=== PATIENT | female | born 1960 | race Caucasian/White ===

== ENCOUNTER 2021-02-08 17:42 | Emergency (ER) | payer BC, SELFPAY ==
[2021-02-08 18:04] VITALS: BP 114/64; PULSE 81; RESP 16; TEMP 37.9; O2SAT 99
--- NOTE | 2021-02-08 18:57 | ED.URI ---
HPI - URI/Sore Throat General Chief Complaint: Upper Respiratory Infection Stated Complaint: sinus infection ears and cough Time Seen by Provider: 02/08/21 18:57 Source: patient History of Present Illness HPI Narrative: Patient presents with a 5-day history of nasal congestion cough and laryngitis. Patient states she was exposed at [place] by family member who recently tested positive for COVID-19. Patient denies any shortness of breath no high fevers and no chest pain. Related Data Home Medications Medication Instructions Recorded Confirmed estradiol See Rx Instructions .ROUTE .COMPLEX 02/08/21 02/08/21 valacyclovir 500 mg PO DAILY 02/08/21 02/08/21 Allergies Allergy/AdvReac Type Severity Reaction Status Date / Time erythromycin base Allergy Unknown NAUSEA/VOMI Verified 02/08/21 18:52 TING Review of Systems Review of Systems: CONSTITUTIONAL: Denies chills, or sweats. Reports fever and generalized body aches EYES: Denies visual changes, redness, or discharge. ENT: Denies otalgia. Reports nasal congestion runny nose and sore throat CARDIOVASCULAR: Denies chest pain, palpitations, or edema. RESPIRATORY: Denies dyspnea. Reports occasional cough GASTROINTESTINAL: Denies abdominal pain, nausea, vomiting, or diarrhea. GENITOURINARY: Denies dysuria or hematuria. SKIN: Denies rash or itching. MUSCULOSKELETAL: Denies back pain, joint pain, or myalgia. Reports generalized body aches NEUROLOGIC: Denies headache, numbness, or weakness. PSYCHIATRIC: Denies anxiety or depression. [facility] Comments At time of signature, agree with nursing past medical, surgical, social and family history. There is no relevant family history pertinent to the presenting complaint Exam Narrative: CONSTITUTIONAL: Denies chills, or sweats. Reports fever and generalized body aches EYES: Denies visual changes, redness, or discharge. ENT: Denies otalgia. Reports nasal congestion runny nose and sore throat CARDIOVASCULAR: Denies chest pain, palpitations, or edema. RESPIRATORY: Denies dyspnea. Reports occasional cough GASTROINTESTINAL: Denies abdominal pain, nausea, vomiting, or diarrhea. GENITOURINARY: Denies dysuria or hematuria. SKIN: Denies rash or itching. MUSCULOSKELETAL: Denies back pain, joint pain, or myalgia. Reports generalized body aches NEUROLOGIC: Denies headache, numbness, or weakness. PSYCHIATRIC: Denies anxiety or depression. Course Course Level of Care: Express Care Visit Vital Signs Vital signs: Vital Signs Temperature 37.9 C H 02/08/21 18:04 Pulse Rate 81 02/08/21 18:04 Respiratory Rate 16 02/08/21 18:04 Blood Pressure 114/64 02/08/21 18:04 Pulse Oximetry 99 02/08/21 18:04 Temperature 37.9 C H 02/08/21 18:04 Pulse Rate 81 02/08/21 18:04 Respiratory Rate 16 02/08/21 18:04 Blood Pressure 114/64 02/08/21 18:04 Pulse Oximetry 99 02/08/21 18:04 Critical dx considered and discussed with pt. Educated patient on red flag s/s and to go to ED if s/s occur. Discussed with pt when to return to Express Care or primary care provider. Pt gave verbal undertstanding, all questions were answered, and pt was agreeable to plan MDM - URI/Sore Throat Differential Diagnosis Differential diagnosis: Likely upper respiratory infection, croup, otitis media, sinusitis, viral infection, bronchitis, influenza and pharyngitis Lab Data Labs: Influenza A Screen Negative Reference Range: Negative Influenza B Screen Negative Reference Range: Negative Critical Care Time Critical Care Time Critical Care Time: No Discharge Plan Discharge Clinical Impression: Upper respiratory infection, Viral infection Patient Disposition: Home, Self-Care Condition: Stable Instructions: Antibiotic Form, Upper Respiratory Infection (DC) Additional Instructions: The following recommendat
== END 2021-02-08 19:16 | disposition home or self-care (01) ==
PROVIDERS: Emergency Provider Nurse Practitioner Family; PCP Internal Medicine
DX: J06.9 Acute upper respiratory infection, unspecified (principal); B34.9 Viral infection, unspecified; Z20.822 Contact with and (suspected) exposure to COVID-19
CPT/HCPCS: 87804; 99203; G0463

== ENCOUNTER 2024-05-02 10:06 | Outpatient (NON) | payer MEDICARE, SELFPAY ==
--- OUTSIDE RECORDS SUMMARY | 2024-05-03 10:58 | XMS_ITS | Encounter Summary ---
Author Organization [facility] Healthcare Address [address] [place] [id number] Care Team Providers Care Biztalk Consultant Name Role Phone Justin Daily MD Primary Care Provider Reason for Visit * Reason Onset Date Comments Scheduling Appointments 06/24/2020 Confirmi ng mammogram appt Encounter Details Date Type Department Care Team (Late st Contact Info) Description 06/24/2020 Telephone [facility] [address] [place] [id number] Mary Anne Nunez RT Scheduling Appointments (Confirming mammogram appt) Social History Tobacco Use Types Packs/Day Years Used Date Smoking Tobacco: Never Smokeless Tobacco: Never Alcohol Use Standard Drinks/Week Comments Yes 0 (1 standard drink = 0.6 oz pur e alcohol) Moderate PHQ-2 Answer Date Recorded PHQ-2 Total Score (If total score is 3 or more points, staff should administer the PHQ-9) 0 06/04/2020 Comments No Sex and Gender Information Value Date Recorded Sex Assigned at Not on file 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
--- OUTSIDE RECORDS SUMMARY | 2024-05-03 10:59 | XMS_ITS | Clinical Summary ---
Author Organization [facility] Address [address] [place] [address] Phone Care Team Providers Care Edge Grinder Machine Name Role Phone Justin Daily MD Primary Care Provider [phone] Allergies Active Allergy Reactions Criticality Noted Date Comments Erythromycin Nausea and Vomiting Low 01/23/2018 Medications CALCIUM CARB/VIT D3/MINERALS (CALCIUM CARBONATE-VIT D3-MIN ORAL) take 1 tablet by Oral route every day 05/16/2013 Active valACYclovir (VALTREX) 500 mg tablet Take 500 mg by mouth. 12/01/2016 Active estradioL 0.075 mg/24 hr patch LIZETTE 1 PA EXT TO THE SKIN 2 TIMES A WK 8 Patch 11 06/16/2021 Active Active Problems No known active problems Immunizations Immunization Administration Dates Next Due (TDVAX)(7 YRS UP) TETANUS AN D DIPHTHERIA TOXOIDS, ADSORBED (2 LF OF TETANUS TOXOID AND 2 LF OF DIPHTHERIA TOXOID), 0.5ML (PF), IM 02/14/2005 INFLUENZA VACCINE QUADRIVALE NT 6 MOS UP PF IM 03/05/2018 Influenza Seasonal Unspecifi ed Formulation IM 11/06/2018,11/07/2011,02/16/2010 Influenza Vaccine Tri Split 4+ Im 2013,01/08/2013,12/08/2011,2011,02/16/2010 Family History Medical History Relation Name Comments Cancer Mother uterine, cervic al Relation Name Status Comments Mother Social History Tobacco Use Types Packs/Day Years Used Date Smoking Tobacco: Never Smokeless Tobacco: Never Alcohol Use Standard Drinks/Week Comments Yes 0 (1 standard drink = 0.6 oz pur e alcohol) monthly Comments No Sex and Gender Information Value Date Recorded Sex Assigned at Not on file 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 Gender Identity Not on file Sexual Orientation Not on file 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 Not on file Not on file Not on file Last Filed Vital Signs Vital Sign Reading Time Taken Comments Blood Pressure 114/64 06/16/2021 10:21 AM CDT Pulse - - Temperature - - Respiratory Rate - - Oxygen Saturation - - Inhaled Oxygen Concentration - - Weight 69.9 kg (154 lb) 06/16/2021 10:21 AM CDT Height 170.2 cm (5' 7 ) 06/16/2021 10:21 AM CDT Body Mass Index 24.12 06/16/2021 10:21 AM CDT Plan of Treatment Upcoming Encounters Date Type Department Care Team (Late st Contact Info) Description 07/16/2024 8:45 AM CDT Office Visit [facility] Minim[facility] Invasive Gynecology [address] [place] [address] Deonte Mcnamara MD [address] [place] [address] Health Maintenance Due Date Last Done Comments FIT-DNA Q 3 years 12/22/2003 FIT/FOBT Q 1 year 12/22/2003 Flex Sig/CT Colonography Q 5 years 12/22/2003 DTAP/TDAP/TD VACCINES (1 - Tdap) 02/15/2005 02/14/19 06 PNEUMOCOCCAL VACCINE 50+ YEA RS (1 of 1 - PCV) 2008 BREAST CANCER SCREENING 06/28/2022 06/29/19 22, 01/18/2018, 01/07/2016 (Previously completed), Additional history exists ZOSTER VACCINE (2 of 2) 08/03/2022 06/08/2022 INFLUENZA VACCINE (#1) 2023 2, 12/04/2020, 10/24/2019, Additional history exists OSTEOPOROSIS SCREENING 12/22/2023 Preventative Visit- Commercial 02/07/2024 0 06/08/2022, 06/16/2021, 06/07/2021, Additional history exists COLORECTAL SCREENING 03/09/2027 03/09/2017, 11/08/2010 (Previously completed) Colorectal Cancer Screening 03/09/2027 RSV VACCINE (60+ or ) (1 - 1-dose 75+ series) 2033 Procedures Procedure Name Priority Date/Time Associated Diagnosis Comments MAMMO SCREENING BILAT Routine 06/28/2021 from Last 3 Months or Most Recently Relevant to Health Maintenance Results * MAMMO SCREENING BILAT (06/28/2021) Anatomical Region Laterality Modality Breast Bilateral Mammography us Deonte Mcnamara MD MAMMO ORDERABLES Edited Result - Final from Last 3 Months or Most Recently Relevant to Health Maintenance Insurance BLUE ACCESS CHOICE Care Teams Edge Grinder Machine Relationship Specialty Start Date End Date Justin Daily MD [address] [place] [phone] PCP - General Internal Medicine 12/04/18
--- OUTSIDE RECORDS SUMMARY | 2024-05-03 10:59 | XMS_ITS | Referral Summary ---
Author Organization [facility] Address [address] [place] [id number] Care Team Providers Care Outboard Motor Mechanic Name Role Phone Justin Daily MD Primary Care Provider Encounters Date Type Department Care Team Description 03/01/2024 1:00 PM CLINICAL SAFETY SPECIALIST Procedure visit [facility] Primary Care at [address] [place] [address] Justin Daily MD Non-recurrent acute serous otitis media of right ear (Primary Dx); BMI 25.0-25.9,adult; Palpitations; Primary sleep disturbance from Last 3 Months Allergies Active Allergy Reactions Criticality Noted Date Comments Erythromycin Nausea & Vomiting Low 01/23/2018 Medications calcium carbonate-vit D3-min (CALTRATE 600+D PLUS MINERALS) 600 mg calcium- 400 unit tablet take 1 tablet by Oral route every day 0 0 4 Active valACYclovir (VALTREX) 500 mg tablet Take 1 tablet (500 mg total) by mouth daily 90 tablet 3 1 Active Additional Information Patient taking differently:500 mg oralDaily PRN, Reported on 03/01/2024 tretinoin (RETIN-A) 0.05 % cream 3 Active fluticasone propionate (FLONASE) 50 mcg/actuation nasal sprayIndications :Allergic rhinitis, unspecified seasonality, unspecified trigger Administer 2 sprays into each nostril daily 16 g 2 4 Active busPIRone (BUSPAR) 10 mg tabletIndication s:Generalized Anxiety Disorder Take 1 tablet (10 mg total) by mouth 3 (three) times a day 90 tablet 11 4 06/16/19 25 Active scopolamine 1 mg over 3 days patch [address] 1 patch on the skin every third day as needed (nausea) 4 patch 2 4 Active zolpidem (AMBIEN) 5 mg tabletIndication s:Sleep-Onset Insomnia Take 1 tablet (5 mg total) by mouth nightly as needed for sleep This replaces trazedone 30 tablet 5 5 03/01/19 26 Active buPROPion XL (WELLBUTRIN XL) 150 mg 24 hr tablet TAKE 1 TABLET(150 MG) BY MOUTH EVERY MORNING 90 tablet 1 5 Active Active Problems Problem Noted Date Diagnosed Date Carpal tunnel syndrome, right 12/09/2022 Anxiety and depression 10/27/2022 Assessment & Plan (10/27/2022 8:21 AM CDT): Not at goal at this time Will start wellbutrin 150 mg xr Sensorineural hearing loss ( SNHL) of right ear with unrestricted hearing of left ear 06/29/2022 Assessment & Plan (06/29/2022 11:40 AM CDT): Hearing test [facility] Impacted cerumen of right ear 06/29/2022 Assessment & Plan (06/29/2022 11:41 AM CDT): Hearing test [facility] Tinnitus 06/29/2022 Assessment & Plan (06/29/2022 11:41 AM CDT): Hearing test [facility] History of low-risk melanoma 03/19/2019 Primary sleep disturbance 11/07/2017 Assessment & Plan (10/27/2022 8:35 AM CDT): Not at goal at thsi time D/c ambien Can try melatonin with an antihistamine Can also try trazodone prn - likely anxiety component Health care maintenance 12/01/2016 Medication management 12/01/2016 History of laparoscopic-assisted vaginal hystere ctomy 12/01/2016 Vitamin D deficiency 02/23/2012 Overview (05/12/2016): VITAMIN D DEFICIENCY NOS Resolved Problems Problem Noted Date Diagnosed Date Resolved Date Acute bilateral low back pain 07/10/2018 08/17/2018 Pectoralis muscle strain 07/10/2018 Malignant melanoma of right pinna 12/01/2016 03/16/2018 Assessment & Plan (12/01/2016 10:37 AM CDT): 2010 Neck pain 11/05/2014 09/07/2017 Overview (05/12/2016): Cervicalgia Immunizations Immunization Administration Dates Next Due Influenza, Quadrivalent, Spl it, Preservative Free, Intramuscular 10/27/2022,2021,12/04/2020,10/23,03/05/2018 Influenza, Split 02/16/2010 Influenza, Trivalent, IM (MDV) 9,12/05/2013,01/08/2013,12/07,11/07/2011,02/16/2010 Influenza, Trivalent, Preser vative Free, Intramuscular 10/31/2023 Influenza, Unspecified 12/08/2019 Pfizer SARS-CoV-2 Monovalent Vaccination (12+ Yrs) PURPLE 05/15/2020,04/23/2020 Td, adsorbed 02/14/2005 ZOSTER Recombinant 10/27/2022,06/08/2022 Social History Tobacco Use Types Packs/Day Years Used Date Smoking Tobacco: Never Smokeless Tobacco: Never Tobacco Cessation:Counseling Given: Not Answered Alcohol Use Standard Drinks/Week Comments Yes 0 (1 standard drink = 0.6 oz pur e alcohol) Moderate AUDIT-C Answer Date Recorded Q1: How often do you have a drink containing alc ohol? Monthly or less 03/01/2024 Q2: How many drinks containi ng alcohol do you have on a typical day when you are drinking? 1 or 2 03/01/2024 Q3: How often do you have si x or more drinks on one occasion? Never 03/01/2024 PHQ-2 Answer Date Recorded PHQ-2 Total Score (If total score is 3 or more points, staff should administer the PHQ-9) 0 03/01/2024 Comments No Sex and Gender Information Value Date Recorded Sex Assigned at Not on file Legal Sex Female 8:30 AM CLINICAL SAFETY SPECIALIST Gender Identity Female 05/09/2022 8:59 PM CDT Sexual Orientation Straight 05/09/2022 8: 59 PM CDT Last Filed Vital Signs Vital Sign Reading Time Taken Comments Blood Pressure 112/74 03/01/2024 1:03 PM CLINICAL SAFETY SPECIALIST Pulse 67 03/01/2024 1:03 PM CLINICAL SAFETY SPECIALIST Temperature 36.4 C (97.6 F) 03/01/2024 1:03 PM CLINICAL SAFETY SPECIALIST Respiratory Rate 16 03/01/2024 1:03 PM CLINICAL SAFETY SPECIALIST Oxygen Saturation 98% 03/01/2024 1:03 PM CLINICAL SAFETY SPECIALIST Inhaled Oxygen Concentration - - Weight 68.9 kg (152 lb) 03/01/2024 1:03 PM CLINICAL SAFETY SPECIALIST Height 165.1 cm (5' 5 ) 03/01/2024 1:03 PM CLINICAL SAFETY SPECIALIST Body Mass Index 25.29 03/01/2024 1:03 PM CLINICAL SAFETY SPECIALIST Plan of Treatment Not on file Procedures Procedure Name Priority Date/Time Associated Diagnosis Comments SCREENING MAMMOGRAM BILATERAL W WAYLON Schedule Routine, Read Routine (OP Routine) 12/28/2023 9:05 AM CLINICAL SAFETY SPECIALIST Screening mammogram, encounter for DEXA AXIAL SKELETON BONE DENSITY 1 OR MORE SITES Schedule Routine, Read Routine (OP Routine) 11/09/2022 2:20 PM CDT Postmenopausal STOOL DNA COLOGUARD Routine 06/14/2021 11:20 AM CDT Screen for colon cancer Screening for rectal cancer HEPATITIS C AB REFLEX RNA QUANT PCR Routine 10/18/2016 4:12 PM CDT from Last 3 Months or Most Recently Relevant to Health Maintenance Results * Screening Mammogram Bilateral W Waylon (12/28/2023 9:05 AM CLINICAL SAFETY SPECIALIST) Anatomical Region Laterality Modality Breast Bilateral Mammography 12/28/2023 9:48 AM CLINICAL SAFETY SPECIALIST Impressions 12/28/2023 9:48 AM CLINICAL SAFETY SPECIALIST There is no mammographic evidence to suggest malignancy. The patient may continue screening mammography as per ACR guidelines. FINAL ASSESSMENT: BI-RADS Category 1: Negative. Electronically signed by: Hellen Givens M.D. Narrative 12/28/2023 9:48 AM CLINICAL SAFETY SPECIALIST EXAMINATION: BILATERAL SCREENING MAMMOGRAM WITH TOMOGRAPHY HISTORY: Screening. COMPARISON(S): 10/27/2022 and 06/25/2020 TECHNIQUE: Full-field 2D images and digital tomosynthesis images were obtained. CAD was utilized. BREAST PARENCHYMAL COMPOSITION: The breasts are heterogenously dense, which may obscure small masses. FINDINGS: There are no suspicious masses. No suspicious calcifications are seen. There is no unexplained architectural distortion. There is no skin thickening seen. There are no mammographically abnormal lymph nodes seen in the axillae or elsewhere. us Self Screening Mammogram IMG MAMMO PROCEDURES Fi nal Result * Dexa Axial Skeleton Bone Density 1 or 2 Site (11/09/2022 2:20 PM CDT) Anatomical Region Laterality Modality Body N/A Other 11/09/2022 6:35 PM CDT Narrative 11/09/2022 6:36 PM CDT EXAM DESCRIPTION: DEXA AXIAL SKELETON BONE DENSITY 1 OR MORE SITES REASON FOR STUDY: 61 y/o year old F with given history of: osteoporosis screening Screening. Postmenopausal Bridge Club Manager/Model: scenios SL (S/N [id number]) CLINICAL INFORMATION: Current height: 66.5 inches Maximum height: 67 inches Weight: 151 pounds Risk factors: Postmenopausal COMPARISON: None available FINDINGS: AP LUMBAR SPINE L1-L4: Total BMD is 1.112 g/cm2 T-score is 0.6 LEFT HIP: Total BMD is 0.760 g/cm2 T-score is -1.5 Femoral neck BMD is 0.693 g/cm2 T-score is -1.4 FRAX: 10 year risk for a major osteoporotic fracture is 8.3 %, 10 year risk for a hip fracture is 0.8 % IMPRESSION: Low Bone Mass. REFERENCE: Bone mineral density: Normal (T-score above or = -1.0) Low bone mass (T-score between -1.0 and -2.5) replaces the previously used term osteopenia Osteoporosis (T-score = or below -2.5) Medical evaluation for secondary causes of low bone mineral density may be appropriate. FRAX is a World Health Organization validated fracture risk assessment tool that calculates a person's 10 year probability of a major osteoporosis related fracture and hip fracture. According to the National Osteoporosis Foundation guidelines, postmenopausal women and men age 50 or older with low bone mass and a 10 year probability of a major osteoporosis related fracture = or greater than 20% or a 10 year probability of a hip fracture = or greater than 3% should be considered for treatment. For further information, including treatment recommendations, please refer to the 2019 ISCD Official Positions (http://www.iscd.org) and the NOF's Clinician's Guide to Prevention and Treatment of Osteoporosis (http://www.nof.org/professionals/clinical-guidelines) THIS IS AN ELECTRONICALLY VERIFIED FINAL REPORT 11/09/2022 6:36 PM - Electronically signed by Otilio Saab M.D. MF: [email or web address] Report ID: [id number] Reading Location: [place] [address] Procedure Note Otilio Saab MD - 11/09/2022 EXAM DESCRIPTION: DEXA AXIAL SKELETON BONE DENSITY 1 OR MORE SITES REASON FOR STUDY: 61 y/o year old F with given history of:osteoporosis screening Screening. Postmenopausal Bridge Club Manager/Model: scenios SL (S/N [id number]) CLINICAL INFORMATION: Current height: 66.5 inches Maximum height: 67 inches Weight: 151 pounds Risk factors: Postmenopausal COMPARISON: None available FINDINGS: AP LUMBAR SPINE L1-L4: Total BMD is 1.112 g/cm2 T-score is 0.6 LEFT HIP: Total BMD is 0.760 g/cm2 T-score is -1.5 Femoral neck BMD is 0.693 g/cm2 T-score is -1.4 FRAX: 10 year risk for a major osteoporotic fracture is 8.3 %, 10 year risk fora hip fracture is 0.8 % IMPRESSION: Low Bone Mass. REFERENCE: Bone mineral density: Normal (T-score above or = -1.0) Low bone mass (T-score between -1.0 and -2.5) replaces thepreviously used term osteopenia Osteoporosis (T-score = or below -2.5) Medical evaluation for secondary causes of low bone mineral density may be appropriate. FRAX is a World Health Organization validated fracture risk assessmenttool that calculates a person's 10 year probability of a major osteoporosisrelated fracture and hip fracture. According to the National OsteoporosisFoundation guidelines, postmenopausal women and men age 50 or older with low bonemass and a 10 year probability of a major osteoporosis related fracture = or greater than 20% or a 10 year probability of a hip fracture = or greaterthan 3% should be considered for treatment. For further information, including treatment recommendations, please referto the 2019 ISCD Official Positions (http://www.iscd.org) and the NOF's Clinician's Guide to Prevention and Treatment of Osteoporosis (http://www.nof.org/professionals/clinical-guidelines) THIS IS AN ELECTRONICALLY VERIFIED FINAL REPORT 11/09/2022 6:36 PM - Electronically signed by Otilio Saab M.D. MF: [email or web address] Report ID: [id number] Reading Location: [place] [address] Dayo Mckay MD [facility] DXA PROCEDURES Final Result * Stool DNA - Cologuard (06/14/2021 11:20 AM CDT) Pathologist [facility] Stool DNA - Cologuard Negative Negative [facility] (CLIA #:[id number]) Comment: NEGATIVE TEST RESULT. A negative Cologuard result indicates a low likelihood that a colorectal cancer (CRC) or advanced adenoma (adenomatous polyps with more advanced pre-malignant features) is present. The chance that a person with a negative Cologuard test has a colorectal cancer is less than 1 in 1500 (negative predictive value >99.9%) or has an advanced adenoma is less than 5.3% (negative predictive value 94.7%). These data are based on a prospective cross-sectional study of 10,000 individuals at average risk for colorectal cancer who were screened with both Cologuard and colonoscopy. (Lindsay Lopez al, N Engl J Med 2014;370(14):9391-7836) The normal value (reference range) for this assay is negative. COLOGUARD RE-SCREENING RECOMMENDATION: Periodic colorectal cancer screening is an important part of preventive healthcare for asymptomatic individuals at average risk for colorectal cancer. Following a negative Cologuard result, the [place] Cancer Society and U.S. Multi-Society Task Force screening guidelines recommend a Cologuard re-screening interval of 3 years. References: [place] Cancer Society Guideline for Colorectal Cancer Screening: https://www.cancer.org/cancer/ykxrz-plobuw-izraih/qkncrdzsz-fixpuqzie-qcmjgpy/ac s-rec ommendations.html.; Madi DK, Ortiz SANDOVAL, Terrance LeijaK, Colorectal Cancer Screening: Recommendations for Physicians and Patients from the U.S. Multi-Society Task Force on Colorectal Cancer Screening , Am J Gastroenterology 2017; 112:5472-8566. TEST DESCRIPTION: Composite algorithmic analysis of stool DNA-biomarkers with hemoglobin immunoassay. Quantitative values of individual biomarkers are not reportable and are not associated with individual biomarker result reference ranges. Cologuard is intended for colorectal cancer screening of adults of either sex, 45 years or older, who are at average-risk for colorectal cancer (CRC). Cologuard has been approved for use by the U.S. FDA. The performance of Cologuard was established in a cross sectional study of average-risk adults aged 50-84. Cologuard performance in patients ages 45 to 49 years was estimated by sub-group analysis of near-age groups. Colonoscopies performed for a positive result may find as the most clinically significant lesion: colorectal cancer [4.0%], advanced adenoma (including sessile serrated polyps greater than or equal to 1cm diameter) [20%] or non- advanced adenoma [31%]; or no colorectal neoplasia [45%]. These estimates are derived from a prospective cross-sectional screening study of 10,000 individuals at average risk for colorectal cancer who were screened with both Cologuard and colonoscopy. (Lindsay Lopez al, N Engl J Med 2014;370(14):0495-2580.) Cologuard may produce a false negative or false positive result (no colorectal cancer or precancerous polyp present at colonoscopy follow up). A negative Cologuard test result does not guarantee the absence of CRC or advanced adenoma (pre-cancer). The current Cologuard screening interval is every 3 years. ([place] Cancer Society and U.S. Multi-Society Task Force). Cologuard performance data in a 10,000 patient pivotal study using colonoscopy as the reference method can be accessed at the following location: www.[employer]/results. Additional description of the Cologuard test process, warnings and precautions can be found at www.cologZaaskrd.com. Stool 06/14/2021 11:2 0 AM CDT 06/15/2021 3:38 PM CDT us Justin Daily MD LAB BODY FLUIDS AND STO OLS ORDERABLES Final Result [employer] (CLIA #:[id number]) [address] [place] [address] * Hepatitis C Antibody Reflex Hepatitis C RNA Quantitative PCR (10/18/2016 4:12 PM CDT) Hep C Ab Negative Negative [facility] Blood specimen (specimen) 10/18/2016 4:12 PM CDT 10/18/2016 4:16 PM CDT Aniceto Davis MD LAB MICROBIOLOGY - GENER AL ORDERABLES Final Result [facility] [address] [place] [address] from Last 3 Months or Most Recently Relevant to Health Maintenance Insurance [address] [facility] [place] <no value> ANTHEM ACCESS CHOICE MEDICARE [facility] MEDICARE SUPPLEMENT ANTHEM ACCESS CHOICE Member Subscriber Plan / Payer ( fective 2010-Present) Name:Aline Reis Relation to Subscriber:Self Name:Aline Reis Payer ID:[id number] (NAIC) Type: [employer] Address: [facility] [address] [address] MEDICARE SUPPLEMENT Member Subscriber Plan / Payer ( fective 2023-) Name:Aline Reis Relation to Subscriber:Self Name:Aline Reis Payer ID:[id number] Group ID:[id number] Type:COMMERCIAL Address: [address] [place] [id number] MEDICARE Care Teams Outboard Motor Mechanic Relationship Specialty Start Date End Date Justin Daily MD PCP - General Internal Medicine 07/20/17
--- OUTSIDE RECORDS SUMMARY | 2024-05-03 10:59 | XMS_ITS | Encounter Summary ---
Author Organization [facility] Address [address] [facility] [address] [place] [address] Care Team Providers Care Delivery Recruiter Name Role Phone Aniceto Davis MD Primary Care Provider + Aniceto Davis MD Primary Care Provider + Aniceto Davis MD Primary Care Provider + Aniceto Davis MD Primary Care Provider + Aniceto Davis MD Primary Care Provider + Justin Daily MD Primary Care Provider Encounter Details Date Type Department Care Team (Late st Contact Info) Description 11/04/2008 Orders Only [facility] Health Information Management [address] [place] [address] Justin Daily MD [address] [place] [address] [address] [place] [address] Social History Tobacco Use Types Packs/Day Years Used Date Smoking Tobacco: Never Assessed Comments Unknown Sex and Gender Information Value Date Recorded Sex Assigned at Not on file Legal Sex Female 8:30 AM PHERESIS SPECIALIST Gender Identity Female 05/09/2022 8:59 PM CDT Sexual Orientation Straight 05/09/2022 8: 59 PM CDT documented as of this encounter Plan of Treatment Not on file documented as of this encounter Procedures Procedure Name Priority Date/Time Associated Diagnosis Comments COLONOSCOPY Routine 11/04/2008 documented in this encounter Results * Colonoscopy (11/04/2008) Anatomical Region Laterality Modality Other us Historical Provider ENDOSCOPY PROCEDURES Nargis l Result documented in this encounter Visit Diagnoses Not on filedocumented in this encounter Care Teams Delivery Recruiter Relationship Specialty Start Date End Date Aniceto Davis MD [address] [place] [address] [place] [address] PCP - General 05/06/16 07/19/17 Aniceto Davis MD [address] [place] [address] [place] [address] PCP - General 05/31/12 05/05/16 Aniceto Davis MD [address] [place] [address] [place] [address] PCP - General 04/13/11 05/30/12 Aniceto Davis MD [address] [place] [address] [place] [address] PCP - General 02/16/10 04/12/11 Aniceto Davis MD [address] [place] [address] [place] [address] PCP - General 08/14/06 02/15/10 Justin Daily MD [address] [place] [address] [place] [address] PCP - General Internal Medicine 07/20/17 documented as of this encounter
--- OUTSIDE RECORDS SUMMARY | 2024-05-03 10:59 | XMS_ITS | Clinical Summary ---
Author Organization [facility] A Address [address] [place] [address] Care Team Providers Care Landscape Account Manager Name Role Phone Justin Daliy MD Primary Care Provider Allergies Active Allergy Reactions Criticality Noted Date [...] AM CDT): Hearing test [facility] Impacted cerumen of right ear 06/29/2022 Assessment & Plan (06/29/2022 11:41 AM CDT): Hearing test [facility] Tinnitus 06/29/2022 Assessment & Plan (06/29/2022 11:41 AM CDT): Hearing test [facility] History of low-risk melanoma [...] Neck pain 11/05/2014 09/07/2017 Overview (05/12/2016): Cervicalgia Encounters Date Type Department Care Team Description 03/01/2024 1:00 PM MELANGEUR OPERATOR Procedure visit [facility] Primary Care at [address] [place] [address] Justin Daily MD Non-recurrent acute serous otitis media of right ear (Primary Dx); BMI 25.0-25.9,adult; Palpitations; Primary sleep disturbance from Last 3 Months Immunizations Immunization Administration Dates Next Due Influenza, Quadrivalent, Spl it, Preservative Free, Intramuscular 10/27/2022,2021,12/04/2020,10/23,03/05/2018 Influenza, Split 02/16/2010 Influenza, Trivalent, IM (MDV) 9,12/05/2013,01/08/2013,12/07,11/07/2011,02/16/2010 Influenza, Trivalent, Preser vative Free, Intramuscular 10/31/2023 Influenza, Unspecified 12/08/2019 Pfizer SARS-CoV-2 Monovalent Vaccination (12+ Yrs) PURPLE 05/15/2020,04/23/2020 Td, adsorbed 02/14/2005 ZOSTER Recombinant 10/27/2022,06/08/2022 Surgical History Surgery Date Site/Laterality Comments HYSTERECTOMY 02/06/2013 - 02/05/2014 Medical History Medical History Date Comments Pancreatitis Pancreatitis Malignant neoplasm of skin Cance r, skin Hx 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 Hx Other Medical -DERMATOLOGIS T Hx Other Medical 10/2010 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; Laterality: right Hx Other Medical 2009 Hysterectomy le ft cinthya Fibrocystic breast Skin cancer 6 years ago Family History Medical History Relation Name Comments Alzheimer's disease Father Alzheime r's Disease; Uterine cancer Mother Cancer -uteri ne; Breast cancer Neg Hx Ovarian cancer Neg Hx Thyroid cancer Neg Hx Relation Name Status Comments Father Mother Social History Tobacco Use Types Packs/Day [...] on file Legal Sex Female 8:30 AM MELANGEUR OPERATOR Gender Identity Female 05/09/2022 8:59 PM CDT Sexual Orientation Straight 05/09/2022 8: 59 PM CDT Obstetrics History Para Term AB IAB SAB Ectopic Multiple Livin g Live Births 2 2 2 Date Outcome GA Total Labor Labor/2nd/3rd Weight Sex Type Anes PTL Brunilda A1 A5 Name Clin Term Term Last Filed Vital Signs Vital Sign Reading Time Taken Comments Blood Pressure 112/74 03/01/2024 1:03 PM MELANGEUR OPERATOR Pulse 67 03/01/2024 1:03 PM MELANGEUR OPERATOR Temperature 36.4 C (97.6 F) 03/01/2024 1:03 PM MELANGEUR OPERATOR Respiratory Rate 16 03/01/2024 1:03 PM MELANGEUR OPERATOR Oxygen Saturation 98% 03/01/2024 1:03 PM MELANGEUR OPERATOR Inhaled Oxygen Concentration - - Weight 68.9 kg (152 lb) 03/01/2024 1:03 PM MELANGEUR OPERATOR Height 165.1 cm (5' 5 ) 03/01/2024 1:03 PM MELANGEUR OPERATOR Body Mass Index 25.29 03/01/2024 1:03 PM MELANGEUR OPERATOR Plan of Treatment Health Maintenance Due Date Last Done Comments Hepatitis B Screening 1976 DTaP/Tdap/Td Vaccine (1 - Tdap) 02/15/2005 6 Pneumococcal vaccine 65+ (1 of 1 - PCV) 2008 Covid-19 Vaccine (2023-2 5 season) 2023 12/28/2020, 05/15/2020, 04/23/2020 Colon Cancer Screening-DNA Stool 06/14/2024 06/14/2021, 04/05/2018, 04/05/2018, Additional history exists Well Visit 65+ 06/15/2024 06/16/2023, 0504/2022, 06/07/2021, Additional history exists Osteoporosis Screening-Bone Density Scan 11/09/2024 11/09/2022, 06/23/2014, 06/23/2014, Additional history exists Breast Cancer Screening-Mammogram 12/27/2024 12/28/2023, 10/27/2022, 06/28/2021, Additional history exists Depression Screening 03/01/2025 03/01/2024, 10/27/2022, 06/08/2022, Additional history exists Fall Risk Assessment 03/01/2025 03/01/2024, 06/08/2022, 01/06/2022, Additional history exists Hepatitis C Screening Completed 10/18/2016, 017 Zoster Vaccine Completed 10/27/2022, 06/08/2022 Influenza Vaccine Completed 10/31/2023, , 2021, Additional history exists Procedures Procedure Name Priority Date/Time Associated Diagnosis Comments SCREENING MAMMOGRAM BILATERAL W WAYLON Schedule Routine, Read Routine (OP Routine) 12/28/2023 9:05 AM MELANGEUR OPERATOR Screening mammogram, encounter for DEXA AXIAL SKELETON [...] Mammogram Bilateral W Waylon (12/28/2023 9:05 AM MELANGEUR OPERATOR) Anatomical Region Laterality Modality Breast Bilateral Mammography 12/28/2023 9:48 AM MELANGEUR OPERATOR Impressions 12/28/2023 9:48 AM MELANGEUR OPERATOR There is no mammographic evidence to suggest malignancy. The patient may continue screening mammography as per ACR guidelines. FINAL ASSESSMENT: BI-RADS Category 1: Negative. Electronically signed by: Hellen Givens M.D. Narrative 12/28/2023 9:48 AM MELANGEUR OPERATOR EXAMINATION: BILATERAL SCREENING MAMMOGRAM WITH TOMOGRAPHY HISTORY: [...] given history of: osteoporosis screening Screening. 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 MF: BLAKE Report ID: [id number] Reading Location: [place] [address] Procedure Note Otilio Saab MD - 11/09/2022 EXAM DESCRIPTION: DEXA AXIAL SKELETON BONE DENSITY 1 OR MORE SITES REASON FOR STUDY: 61 y/o year old F with given history of:osteoporosis screening Screening. 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 MF: BLAKE Report ID: [id number] Reading Location: [place] [address] Dayo Mckay MD IM DXA PROCEDURES Final Result * Stool DNA - Cologuard (06/14/2021 11:20 AM CDT) Stool DNA - Cologuard Negative Negative T-ZONE (CLIA #:[id number]) Comment: NEGATIVE TEST RESULT. A negative Cologuard [...] screened with both Cologuard and colonoscopy. (Lindsay Suggs, N Engl J Med 2014;370(14):4686-1373) The normal value (reference range) for this assay is negative. COLOGUARD RE-SCREENING RECOMMENDATION: Periodic colorectal cancer screening is an important part of preventive healthcare for asymptomatic individuals at average risk for colorectal cancer. Following a negative Cologuard result, the [place] [employer] and U.S. Multi-Society Task Force screening guidelines recommend a Cologuard re-screening interval of 3 years. References: [place] [employer] Guideline for Colorectal Cancer Screening: https://www.cancer.org/cancer/zpoda-nxjggd-fnzywr/azqfjeykf-deepfuwus-othqqus/ac s-rec ommendations.html.; Madi DK, Ortiz CR, Terrance LeijaK, Colorectal Cancer Screening: Recommendations for Physicians and Patients from the U.S. Multi-Society Task Force on Colorectal Cancer Screening , Am J Gastroenterology 2017; 112:8782-3814. TEST DESCRIPTION: Composite algorithmic analysis of stool [...] screened with both Cologuard and colonoscopy. (Lindsay Suggs, N Engl J Med 2014;370(14):3370-0115.) Cologuard may produce a false negative or false positive result (no colorectal cancer or precancerous polyp present at colonoscopy follow up). A negative Cologuard test result does not guarantee the absence of CRC or advanced adenoma (pre-cancer). The current Cologuard screening interval is every 3 years. ([place] [employer] and U.S. Multi-Society Task Force). Cologuard performance data in a 10,000 patient pivotal study using colonoscopy as the reference method can be accessed at the following location: www.DeliveryChef.in.iFLYER/results. Additional description of the Cologuard test process, warnings and precautions can be found at www.cologuard.com. Stool 06/14/2021 11:2 0 AM CDT 06/15/2021 3:38 PM CDT Justin Daily MD LAB BODY FLUIDS AND STO OLS ORDERABLES Final Result Performing Organization Address City/[facility]/ZIP Co de Phone Number Doctor kinetic (CLIA #:[id number]) [place] [place] [address] * Hepatitis C Antibody Reflex Hepatitis C RNA Quantitative PCR (10/18/2016 4:12 PM CDT) Hep C Ab Negative Negative JUAREZ BRUCE Blood specimen (specimen) 10/18/2016 4:12 PM CDT 10/18/2016 4:16 PM CDT Aniceto Davis MD LAB MICROBIOLOGY - GENER AL ORDERABLES Final Result Performing Organization Address City/[facility] Co de Phone Number JUAREZ [address] Department [place] [address] from Last 3 Months or Most Recently Relevant to Health Maintenance Insurance CARMELO MADDOX <no value> ANTHEM ACCESS CHOICE MEDICARE [facility] MEDICARE SUPPLEMENT [facility] CHOICE [facility] Address: [address] MEDICARE SUPPLEMENT MEDICARE Care Teams Landscape Account Manager Relationship Specialty Start Date End Date Justin Daily MD PCP - General Internal Medicine 07/20/17
== END 2024-05-02 10:07 | disposition home or self-care (01) ==
PROVIDERS: PCP Internal Medicine; Visit Provider Plastic Surgery
DX: D23.9 Other benign neoplasm of skin, unspecified (principal)
CPT/HCPCS: 88305

== ENCOUNTER → 2025-01-06 13:30 | Outpatient (REF) | payer MEDICARE, SELFPAY ==
--- NOTE | 2025-01-06 13:30 | S_PTH ---
PATIENT: Aline Reis LOC: [facility] U#:[id number] AGE/SX: 64/F ROOM: RE01/06/[address]: Alivia Juarez MD : 1960 BED: DIS: SPEC #: [id number] RECD: 01/07/25 08:22 STATUS: NICOLA NEIL #: [id number] SERGEY: 01/06/25 13:[address]: Alivia Juarez DEPT: [facility] Surgical RECD BY: Og Ayala ENTERED: 01/07/25 08:22 SP TYPE: Surgical OTHR DR: UNKNOWN,DOCTOR Tissues: A - Cyst Procedures: Hematoxylin and Eosin Stain Gross and Microscopic Level 4
--- OUTSIDE RECORDS SUMMARY | 2025-01-06 14:38 | XMS_ITS | Clinical Summary ---
Author Organization [facility] Medical Office Building A Address [address] [place] [address] Care Team Providers Care Hammer Heater Name Role Phone Justin Daily MD Primary Care Provider Allergies Active Allergy Reactions Criticality Noted Date Comments Erythromycin Nausea & Vomiting Low 01/23/2018 Medications calcium carbonate-vit D3-min (CALTRATE 600+D PLUS MINERALS) 600 mg calcium- 400 unit tablet take 1 tablet by Oral route every day 0 0 4 Active fexofenadine-pse udoephedrine (CHIO-D) 60-120 mg per 12 hr tablet Take 1 tablet by mouth 2 (two) times a day For plugged up ears 14 tablet 1 5 10/02/19 26 Active escitalopram (LEXAPRO) 10 mg tabletIndication s:Generalized Anxiety Disorder Take 1 tablet (10 mg total) by mouth daily For excess worrying 90 tablet 3 5 Active Additional Information Patient not taking.Reported on 11/12/2024 zolpidem (AMBIEN) 5 mg tablet TAKE 1 TABLET(5 MG) BY MOUTH EVERY NIGHT NEEDED FOR SLEEP. REPLACES TRAZEDONE 30 tablet 5 5 Active valACYclovir (VALTREX) 500 mg tablet Take 1 tablet (500 mg total) by mouth daily 90 tablet 1 5 Active fluticasone propionate (FLONASE) 50 mcg/actuation nasal sprayIndications :Allergic rhinitis, unspecified seasonality, unspecified trigger Administer 2 sprays into each nostril daily 16 g 1 5 10/11/19 26 Active tretinoin (RETIN-A) 0.05 % cream Apply topically nightly 20 g 11 5 Active Active Problems Problem Noted Date Diagnosed Date Encounter for screening colonoscopy 06/19/2024 Carpal tunnel syndrome, right 12/09/2022 Anxiety and depression 10/27/2022 Assessment & Plan (10/27/2022 8:21 AM CDT): Not at goal at this time Will start wellbutrin 150 mg xr Sensorineural hearing loss ( SNHL) of right ear with unrestricted hearing of left ear 06/29/2022 Assessment & Plan (06/29/2022 11:40 AM CDT): Hearing test [facility] Impacted cerumen of right ear 06/29/2022 Assessment & Plan (06/29/2022 11:41 AM CDT): Hearing test [facility] Tinnitus 06/29/2022 Assessment & Plan (06/29/2022 11:41 AM CDT): Hearing test [facility] History of low-risk melanoma [...] Encounters Date Type Department Care Team Description 12/05/2024 Orders Only [facility] Care Organization [address] [place] [address] Justin Daily MD Screening for colorectal cancer 12/03/2024 Telephone [facility] Primary Care at [address] [place] [address] Justin Daily MD Prior Auth (Tretinoin) 11/12/2024 9:36 AM CDT - 11/12/2024 11:59 PM CDT Hospital Encounter [facility] [address] [place] [address] [address], [address] [place] [address] John Garcia MD Myalgia, other site (Primary Dx); Spondylosis of cervical region without myelopathy or radiculopathy Discharge Disposition: Discharge to home or self care 10/16/2024 Orders Only [facility] Primary Care at [address] [address] Justin Daily MD Abnormal MRI, lumbar spine (Primary Dx) 10/11/2024 8:13 AM CDT - 10/11/2024 11:59 PM CDT Hospital Encounter [facility] [address] [place] [address] Bilateral lumbar radiculopathy Discharge Disposition: Discharge to home or self care 10/11/2024 Results Follow-Up [facility] Primary Care at [address] [address] Justin Daily MD MRI Lumbar Spine WO Contrast from Last 3 Months Immunizations Immunization Administration Dates Next Due Influenza, Quadrivalent, Spl it, Preservative Free, Intramuscular 10/27/2022,2021,12/04/2020,10/23,03/05/2018 Influenza, Split 02/16/2010 Influenza, Trivalent, IM (MDV) 9,12/05/2013,01/08/2013,12/07,11/07/2011,02/16/2010 Influenza, Trivalent, Preser vative Free, Intramuscular 10/31/2023 Influenza, Unspecified 12/08/2019 Pfizer SARS-CoV-2 Monovalent Vaccination (12+ Yrs) PURPLE 05/15/2020,04/23/2020 Pneumococcal Conjugate Pcv20 06/19/2024 Td, adsorbed 02/14/2005 ZOSTER Recombinant 10/27/2022,06/08/2022 Surgical History Surgery Date Site/Laterality Comments HYSTERECTOMY 02/06/2013 - 02/05/2014 Medical History Medical History Date Comments Pancreatitis Pancreatitis Malignant neoplasm of skin Cance r, skin Hx 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 Hx Other Medical -DERMATOLOGIS T Hx Other Medical 10/2010 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; Laterality: right Hx Other Medical 2009 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 Fibrocystic breast Skin cancer 6 years ago [...] points, staff should administer the PHQ-9) 0 11/12/2024 PHQ-9 Answer Date Recorded PHQ-9 Total Score 1 11/12/2024 Comments No Sex and Gender Information Value Date Recorded Sex Assigned at Not on file Legal Sex Female 8:30 AM CLINICAL PSYCHOLOGY TEACHER Gender Identity Female 05/09/2022 8:59 PM CDT Sexual Orientation Straight 05/09/2022 8: 59 PM CDT Obstetrics History Para Term AB IAB SAB Ectopic Multiple Livin g Live Births 2 2 2 Date Outcome GA Total Labor Labor/2nd/3rd Weight Sex Type Anes PTL Brunilda A1 A5 Name Clin Term Term Last Filed Vital Signs Vital Sign Reading Time Taken Comments Blood Pressure 138/80 11/12/2024 9:58 AM CDT Pulse 71 11/12/2024 9:58 AM CDT Temperature 36.8 C (98.2 F) 10/01/2024 8:53 AM CDT Respiratory Rate 18 11/12/2024 9:58 AM CDT Oxygen Saturation 98% 11/12/2024 9:58 AM CDT Inhaled Oxygen Concentration - - Weight 69.9 kg (154 lb) 10/01/2024 8:53 AM CDT Height 165.1 cm (5' 5) 10/01/2024 8:53 AM CDT Body Mass Index 25.63 10/01/2024 8:53 AM CDT Plan of Treatment Upcoming Encounters Date Type Department Care Team (Late st Contact Info) Description 02/03/2025 9:30 AM CLINICAL PSYCHOLOGY TEACHER Hospital Encounter [address] [address] Jeromy Lopez DO [address] [address] 02/03/2025 9:30 AM CLINICAL PSYCHOLOGY TEACHER - 02/03/2025 10:00 AM CLINICAL PSYCHOLOGY TEACHER Surgery [address] [address] Jeromy Lopez DO [address] [place] [address] COLONOSCOPY Scheduled Procedures Name Priority Associated Diagnoses Date/Ti me COLONOSCOPY Encounter for screening colonoscopy 02/03/2025 9:30 AM CLINICAL PSYCHOLOGY TEACHER Health Maintenance Due Date Last Done Comments Hepatitis B Screening 1978 Colon Cancer Screening-DNA Stool 06/14/2024 06/14/2021, 04/05/2018, 04/05/2018, Additional history exists Covid-19 Vaccine ( season) 2024 12/28/2020, 05/15/2020, 04/23/2020 Influenza Vaccine (#1) 2024 , 10/27/2022, 2021, Additional history exists Osteoporosis Screening-Bone Density Scan 11/09/2024 11/09/2022, 06/23/2014, 06/23/2014, Additional history exists Breast Cancer Screening-Mammogram 12/27/2024 12/28/2023, 10/27/2022, 06/28/2021, Additional history exists Well Visit 65+ 06/19/2025 06/19/2024, 06/06, 06/08/2022, Additional history exists Fall Risk Assessment 10/01/2025 10/01/2024, 06/19/2024, 03/01/2024, Additional history exists Depression Screening 11/12/2025 11/12/2024, 11/12/2024, 10/01/2024, Additional history exists DTaP/Tdap/Td Vaccine (1 - Tdap) 09/14/2027 02/14/2005 Postponed from 02/15/2005 (Insurance / Financial) Hepatitis C Screening Completed 10/18/2016, 017 Zoster Vaccine Completed 10/27/2022, 06/08/2022 Pneumococcal vaccine 65+ Completed 06/19/2024 Procedures Procedure Name Priority Date/Time Associated Diagnosis Comments MRI LUMBAR SPINE WO CONTRAST Schedule Routine, Read Routine (OP Routine) 10/11/2024 8:56 AM CDT Bilateral lumbar radiculopathy SCREENING MAMMOGRAM BILATERAL W WAYLON Schedule Routine, Read Routine (OP Routine) 12/28/2023 9:05 AM CLINICAL PSYCHOLOGY TEACHER Screening mammogram, encounter for DEXA AXIAL SKELETON [...] Recently Relevant to Health Maintenance Results * MRI Lumbar Spine WO Contrast (10/11/2024 8:56 AM CDT) Anatomical Region Laterality Modality Spine N/A Magnetic Resonan ce 10/11/2024 9:17 AM CDT Narrative 10/11/2024 9:24 AM CDT EXAM DESCRIPTION: MRI LUMBAR SPINE WO CONTRAST REASON FOR STUDY: Bilateral lumbar radiculopathy Low back pain with bilateral lower extremity numbness for a couple of months. No injury TECHNIQUE: Sagittal and Axial imaging includes T1, T2, STIR sequences. COMPARISON: Lumbar spine radiographs dated 08/24/2018. FINDINGS: SEGMENTATION: 5 [id number]-ojirijs lumbar type vertebral bodies. ALIGNMENT: There is levoconvex lumbar curvature. VERTEBRAE: No acute compression fracture in the lumbar spine. Few scattered Schmorl's node. Multilevel endplate degenerative changes and marginal spur formation. The L3-L4 and L4-L5 facet joint STIR hyperintense signal can be seen with synovitis in the proper clinical scenario. Nonspecific mild heterogeneous T1 bone marrow signal. DISC HEIGHT: Multilevel disc desiccation and height loss. HARDWARE: None in the spine. CORD/CAUDA: The conus medullaris terminates at L1-L2. In the posterior epidural space at the level of L2 vertebral body is a 0.9 x 0.7 cm T1 dark, STIR hyperintense signal (series 6, image 9 and series 7, image 9). LOWER THORACIC: Incompletely imaged. No high-grade spinal canal stenosis. INDIVIDUAL DISC LEVELS: L1-L2: No significant disc bulge, spinal canal or neural foraminal narrowing. L2-L3: Minor disc bulge with thickened ligamentum flavum and facet arthropathy. No significant spinal canal or neural foraminal narrowing. L3-L4: No significant disc bulge, spinal canal or neural foraminal narrowing. Bilateral facet arthropathy. L4-L5: Disc bulge with thickened ligamentum flavum and facet arthropathy. Flattening of the ventral thecal sac. No significant neural foraminal narrowing. L5-S1: No significant disc bulge, spinal canal or neural foraminal narrowing. IMPRESSION: 1. Eerw-pn-dbzqfklc lumbar disc degeneration with thickened ligamentum flavum and more advanced facet arthropathy as described. The lumbar spinal canal is patent and there is no high-grade neural foraminal narrowing. 2. The L2 vertebral body level posterior epidural STIR hyperintense signal is nonspecific and could be a synovial cyst or ligamentum flavum cyst. Recommend a complete pre and postcontrast MRI utilizing fat saturated sequences to exclude an epidural space-occupying lesion. THIS IS AN ELECTRONICALLY VERIFIED FINAL REPORT 10/11/2024 9:24 AM - Electronically signed by Zaheer Walden D.O. AP: AP Report ID: [id number] Reading Location: [id number] Procedure Note Zaheer Walden, DO - 10/11/2024 EXAM DESCRIPTION: MRI LUMBAR SPINE WO CONTRAST REASON FOR STUDY: Bilateral lumbar radiculopathy Low back pain with bilateral lower extremity numbness for a couple ofmonths. No injury TECHNIQUE: Sagittal and Axial imaging includes T1, T2, STIR sequences. COMPARISON: Lumbar spine radiographs dated 08/24/2018. FINDINGS: SEGMENTATION: 5 kzu-qwk-zkxxxnq lumbar type vertebral bodies. ALIGNMENT: There is levoconvex lumbar curvature. VERTEBRAE: No acute compression fracture in the lumbar spine. Fewscattered Schmorl's node. Multilevel endplate degenerative changes and marginalspur formation. The L3-L4 and L4-L5 facet joint STIR hyperintense signal canbe seen with synovitis in the proper clinical scenario. Nonspecific mild heterogeneous T1 bone marrow signal. DISC HEIGHT: Multilevel disc desiccation and height loss. HARDWARE: None in the spine. CORD/CAUDA: The conus medullaris terminates at L1-L2. In the posterior epidural space at the level of L2 vertebral body is a 0.9 x 0.7 cm T1dark, STIR hyperintense signal (series 6, image 9 and series 7, image 9). LOWER THORACIC: Incompletely imaged. No high-grade spinal canalstenosis. INDIVIDUAL DISC LEVELS: L1-L2: No significant disc bulge, spinal canal or neural foraminalnarrowing. L2-L3: Minor disc bulge with thickened ligamentum flavum and facet arthropathy. No significant spinal canal or neural foraminal narrowing. L3-L4: No significant disc bulge, spinal canal or neural foraminalnarrowing. Bilateral facet arthropathy. L4-L5: Disc bulge with thickened ligamentum flavum and facet arthropathy. Flattening of the ventral thecal sac. No significant neural foraminal narrowing. L5-S1: No significant disc bulge, spinal canal or neural foraminalnarrowing. IMPRESSION: 1. Lxbx-vi-skgehuws lumbar disc degeneration with thickened ligamentum flavum and more advanced facet arthropathy as described. The lumbarspinal canal is patent and there is no high-grade neural foraminal narrowing. 2. The L2 vertebral body level posterior epidural STIR hyperintensesignal is nonspecific and could be a synovial cyst or ligamentum flavum cyst. Recommend a complete pre and postcontrast MRI utilizing fat saturated sequences to exclude an epidural space-occupying lesion. THIS IS AN ELECTRONICALLY VERIFIED FINAL REPORT 10/11/2024 9:24 AM - Electronically signed by Zaheer Walden D.O. AP: AP Report ID: [id number] Reading Location: [place] [address] Justin Daily MD IMG MRI PROCEDURES Nargis l Result * Screening Mammogram Bilateral W Waylon (12/28/2023 9:05 AM CLINICAL PSYCHOLOGY TEACHER) Anatomical Region Laterality Modality Breast Bilateral Mammography 12/28/2023 9:48 AM CLINICAL PSYCHOLOGY TEACHER Impressions 12/28/2023 9:48 AM CLINICAL PSYCHOLOGY TEACHER There is no mammographic evidence to suggest malignancy. The patient may continue screening mammography as per ACR guidelines. FINAL ASSESSMENT: BI-RADS Category 1: Negative. Electronically signed by: Hellen Givens M.D. Narrative 12/28/2023 9:48 AM CLINICAL PSYCHOLOGY TEACHER EXAMINATION: BILATERAL SCREENING MAMMOGRAM WITH TOMOGRAPHY HISTORY: [...] given history of: osteoporosis screening Screening. 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 MF: BLAKE Report ID: [id number] Reading Location: [place] [address] Procedure Note Otilio Saab MD - 11/09/2022 EXAM DESCRIPTION: DEXA AXIAL SKELETON BONE DENSITY 1 OR MORE SITES REASON FOR STUDY: 61 y/o year old F with given history of:osteoporosis screening Screening. 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 MF: BLAKE Report ID: [id number] Reading Location: [place] [address] us Dayo Mckay MD IMG DXA PROCEDURES Final Result * Stool DNA - Cologuard (06/14/2021 11:20 AM CDT) Stool DNA - Cologuard Negative Negative [facility] (WauwaaIA #:[id number]) Comment: NEGATIVE TEST RESULT. A negative Cologuard [...] screened with both Cologuard and colonoscopy. (Lindsay T. et al, N Engl J Med 2014;370(14):1256-6747) The normal value (reference range) for this assay is negative. COLOGUARD RE-SCREENING RECOMMENDATION: Periodic colorectal cancer screening is an important part of preventive healthcare for asymptomatic individuals at average risk for colorectal cancer. Following a negative Cologuard result, the [place] Cancer Society and U.S. Multi-Society Task Force screening guidelines recommend a Cologuard re-screening interval of 3 years. References: [place] Cancer Society Guideline for Colorectal Cancer Screening: https://www.cancer.org/cancer/dgaac-kcorsu-qpmsza/prjoyfdsk-qwsqfnopv-qizunnx/ac s-rec ommendations.html.; Madi HENRY, Ortiz SANDOVALTerrance, Colorectal Cancer Screening: Recommendations for Physicians and Patients from the U.S. Multi-Society Task Force on Colorectal Cancer Screening , Am J Gastroenterology 2017; 112:2979-4061. TEST DESCRIPTION: Composite algorithmic analysis of stool [...] screened with both Cologuard and colonoscopy. (Lindsay Barber et al, N Engl J Med 2014;370(14):2401-3417.) Cologuard may produce a false negative or false positive result (no colorectal cancer or precancerous polyp present at colonoscopy follow up). A negative Cologuard test result does not guarantee the absence of CRC or advanced adenoma (pre-cancer). The current Cologuard screening interval is every 3 years. ([place] Cancer Society and U.S. Multi-Society Task Force). Cologuard performance data in a 10,000 patient pivotal study using colonoscopy as the reference method can be accessed at the following location: www.KnowFu/results. Additional description of the Cologuard test process, warnings and precautions can be found at www.Torch Grouprd.com. Stool 06/14/2021 11:2 0 AM CDT 06/15/2021 3:38 PM CDT us Justin Daily MD LAB BODY FLUIDS AND STO OLS ORDERABLES Final Result [facility] (CLIA #:[id number]) [address] [place] [address] * Hepatitis C Antibody Reflex Hepatitis C RNA Quantitative PCR (10/18/2016 4:12 PM CDT) Hep C Ab Negative Negative [facility]ER[facility]OR[facility] TE[facility] Blood specimen (specimen) 10/18/2016 4:12 PM CDT 10/18/2016 4:16 PM CDT us Aniceto Davis MD LAB MICROBIOLOGY - GENER AL ORDERABLES Final Result [facility] [address] Department [place] [address] from Last 3 Months or Most Recently Relevant to Health Maintenance Insurance MEDICARE [facility] [address] [facility] Member Subscriber Plan / Payer (Ef fective 2010-Present) Name:Aline Reis Relation to Subscriber:Self Name:Aline Reis Payer ID:[id number] (NAIC) Type:[facility] Address: [place] [id number] MEDICARE SUPPLEMENT MEDICARE Care Teams Hammer Heater Relationship Specialty Start Date End Date Justin Daily MD PCP - General Internal Medicine 07/20/17
--- OUTSIDE RECORDS SUMMARY | 2025-01-06 14:38 | XMS_ITS | Encounter Summary ---
Author Organization [facility] Healthcare Address [address] [place] [address] Care Team Providers Care Western Philosophy Professor Name Role Phone Justin Daily MD Primary Care Provider Reason for Visit * Reason Onset Date Comments Scheduling Appointments 06/24/2020 Confirmi ng mammogram appt Encounter Details Date Type Department Care Team (Late st Contact Info) Description 06/24/2020 Telephone [facility] [address] [place] [phone] Mary Anne Nunez, Scheduling Appointments (Confirming mammogram appt) Social History [...] on file Legal Sex Female 8:30 AM AUTOMATIC MAINTAINER Gender Identity Female 05/09/2022 8:59 PM CDT Sexual Orientation Straight 05/09/2022 8: 59 PM CDT documented as of this encounter Plan of Treatment Upcoming Encounters Date Type Department Care Team (Late st Contact Info) Description 02/03/2025 9:30 AM AUTOMATIC MAINTAINER Hospital Encounter [facility] [address] [place] [address] Jeromy Lopez, DO [address] [place] [address] [place] [address] 02/03/2025 9:30 AM AUTOMATIC MAINTAINER - 02/03/2025 10:00 AM AUTOMATIC MAINTAINER Surgery [facility] [address] [place] [address] Jeromy Lopez, DO [address] [place] [address] DR [address] [place] [address] COLONOSCOPY Scheduled Procedures Name Priority Associated Diagnoses Date/Ti me COLONOSCOPY Encounter for screening colonoscopy 02/03/2025 9:30 AM AUTOMATIC MAINTAINER documented as of this encounter Visit Diagnoses Not on filedocumented in this encounter Care Teams Western Philosophy Professor Relationship Specialty Start Date End Date Justin Daily MD PCP - General Internal Medicine 07/20/17 documented as of this encounter
--- OUTSIDE RECORDS SUMMARY | 2025-01-06 14:38 | XMS_ITS | Encounter Summary ---
Author Organization [facility] Address [address] [place] [address] Care Team Providers Care Side Door Man Name Role Phone Aniceto Davis MD Primary Care Provider + Aniceto Davis MD Primary Care Provider + Aniceto Davis MD Primary Care Provider + Aniceto Davis MD Primary Care Provider + Aniceto Davis MD Primary Care Provider + Justin Daily MD Primary Care Provider Encounter Details Date Type Department Care Team (Late st Contact Info) Description 11/04/[address] [facility] [address] [place] [address] Justin Daily MD [address] [place] [address] [address] [place] [address] Social History Tobacco Use Types Packs/Day Years Used Date Smoking Tobacco: Never Assessed Comments Unknown Sex and Gender Information Value Date Recorded Sex Assigned at Not on file Legal Sex Female 8:30 AM SWITCH CREW SUPERVISOR Gender Identity Female 05/09/2022 8:59 PM CDT Sexual Orientation Straight 05/09/2022 8: 59 PM CDT documented as of this encounter Plan of Treatment Upcoming Encounters Date Type Department Care Team (Late st Contact Info) Description 02/03/2025 9:30 AM SWITCH CREW SUPERVISOR Hospital Encounter [facility] [address] [place] [address] Jeromy Lopez DO [address] [facility] [address] [place] [address] 02/03/2025 9:30 AM SWITCH CREW SUPERVISOR - 02/03/2025 10:00 AM SWITCH CREW SUPERVISOR Surgery [facility] [address] [place] [address] Jeromy Lopez DO [address] [facility] [place] [address] COLONOSCOPY Scheduled Procedures Name Priority Associated Diagnoses Date/Ti me COLONOSCOPY Encounter for screening colonoscopy 02/03/2025 9:30 AM SWITCH CREW SUPERVISOR documented as of this encounter Procedures Procedure Name Priority Date/Time Associated Diagnosis Comments COLONOSCOPY Routine 11/04/2008 documented in this encounter Results * Colonoscopy (11/04/2008) Anatomical Region Laterality Modality Other us Historical Provider ENDOSCOPY PROCEDURES Nargis l Result documented in this encounter Visit Diagnoses Not on filedocumented in this encounter Care Teams Side Door Man Relationship Specialty Start Date End Date Aniceto Davis MD [address] [place] [address] [place] [address] PCP - General 05/06/16 07/19/17 Aniceto Davis MD [address] [place] [address] [place] [address] PCP - General 05/31/12 05/05/16 Aniceto Davis MD [address] [place] [address] [place] [address] PCP - General 04/13/11 05/30/12 Aniceto Davis MD [address] [place] [address] [place] [address] PCP - General 02/16/10 04/12/11 Aniceto Davis MD [address] [facility] [place] [address] PCP - General 08/14/06 02/15/10 Justin Daily MD [address] [place] [address] PCP - General Internal Medicine 07/20/17 documented as of this encounter
--- OUTSIDE RECORDS SUMMARY | 2025-01-06 14:38 | XMS_ITS | Clinical Summary ---
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 on file Not on file Not on file Last Filed Vital Signs Vital Sign Reading Time Taken Comments Blood Pressure 114/64 06/16/2021 10:21 AM CDT Pulse - - Temperature - - Respiratory Rate - - Oxygen Saturation - - Inhaled Oxygen Concentration - - Weight 69.9 kg (154 lb) 06/16/2021 10:21 AM CDT Height 170.2 cm (5' 7) 06/16/2021 10:21 AM CDT Body Mass Index 24.12 06/16/2021 10:21 AM CDT Plan of Treatment Health Maintenance Due Date Last Done Comments FIT-DNA Q 3 years 12/22/2003 FIT/FOBT Q 1 year 12/22/2003 Flex Sig/CT Colonography Q 5 years 12/22/2003 DTAP/TDAP/TD VACCINES (1 - Tdap) 02/15/2005 02/14/19 06 PNEUMOCOCCAL VACCINE 50+ YEA RS (1 of 1 - PCV) 2008 BREAST CANCER SCREENING 06/28/2022 06/29/19, 01/18/2018, 01/07/2016 (Previously completed), Additional history exists ZOSTER VACCINE (2 of 2) 08/03/2022 06/08/2022 OSTEOPOROSIS SCREENING 12/22/2023 INFLUENZA VACCINE (#1) 2024 2, 12/04/2020, 10/24/2019, Additional history exists COLORECTAL SCREENING 03/09/2027 03/09/2017, 11/08/2010 (Previously completed) Colorectal Cancer Screening 03/09/2027 RSV VACCINE (60+ or ) (1 - 1-dose 75+ series) 2033 Procedures Procedure Name Priority Date/Time Associated Diagnosis Comments MAMMO SCREENING BILAT Routine 06/28/2021 from Last 3 Months or Most Recently Relevant to Health Maintenance Results * MAMMO SCREENING BILAT (06/28/2021) Anatomical Region Laterality Modality Breast Bilateral Mammography Deonte Mcnamara MD MAMMO ORDERABLES Edited Result - Final from Last 3 Months or Most Recently Relevant to Health Maintenance [place] [address] [address] [place] [address] BLUE ACCESS CHOICE Care Teams Muffler Hand Relationship Specialty Start Date End Date Justin Daily MD [address] [place] [address] [place] [address] PCP - General Internal Medicine 12/04/18
== END ==
LOC: ANHLAB 13:30
PROVIDERS: Visit Provider Plastic Surgery
DX: L72.0 Epidermal cyst (principal)
CPT/HCPCS: 88305